=== PATIENT | female | born 1965 | race Caucasian/White ===

== ENCOUNTER 2017-08-04 17:55 | Emergency (ER) | payer OTHER ==
[~2017-08-04] VITALS: Ht 157.5 cm; Wt 86.8 kg
[2017-08-04 18:01] VITALS: BP 152/72; PULSE 68; RESP 18; TEMP 98.1; O2SAT 100
[2017-08-04] MEDS ORDERED: BIRTH CONTROL (18:29)
[2017-08-04 19:01] LABS: AUTOMATED NEUTROPHIL # 5.7 TH/MM3 (1.8-7.7); BASOPHIL # 0.1 TH/MM3 (0-0.2); BASOPHIL % 0.7 % (0.0-2.0); EOSINOPHIL # 0.2 TH/MM3 (0-0.4); EOSINOPHIL % 2.4 % (0.0-4.0); HEMATOCRIT 31.7 % (35.0-46.0); HEMOGLOBIN 10.1 GM/DL (11.6-15.3); LYMPH % 20.4 % (9.0-44.0); LYMPHOCYTE # 1.7 TH/MM3 (1.0-4.8); MEAN CELL VOLUME 84.3 FL (80.0-100.0); MEAN PLATELET VOLUME 8.2 FL (7.0-11.0); MONO % 8.3 % (0.0-8.0); MONOCYTE # 0.7 TH/MM3 (0-0.9); NEUT % 68.2 % (16.0-70.0); PLATELET COUNT 196 TH/MM3 (150-450); RED BLOOD COUNT 3.76 MIL/MM3 (4.00-5.30); RED CELL DISTRIBUTION WIDTH 13.9 % (11.6-17.2); WHITE BLOOD COUNT 8.4 TH/MM3 (4.0-11.0)
--- NOTE | 2017-08-04 19:19 | PD ---
HPI Chief Complaint: Pain: Acute or Chronic Time Seen by Provider: 18:21 Travel History International Travel<30 days: No Contact w/Intl Traveler<30days: No Traveled to known affect area: No History of Present Illness HPI This patient complains of right leg swelling for 3 days. She has got some redness and warmth and swelling and discomfort there. She had an outpatient ultrasound of the leg one hour prior which revealed a right leg DVT. She has no history of DVT. She started on control pills a few days ago because of chronic heavy vaginal bleeding. She follows with an [facility]EMENT [facility] but is just getting to undergo evaluation of this chronic heavy bleeding. She's not bleeding right now. She has an outpatient ultrasound scheduled for next Wednesday. Symptoms severity is mild to moderate. No alleviating factors. No exacerbating factors. PFSH Past Medical History Medical History: Denies Significant Hx Tetanus Vaccination: > 5 Years Influenza Vaccination: No ?: Not Past Surgical History Other Surgery: Yes (JAW SX) Social History Alcohol Use: Yes (RARE) Tobacco Use: No Substance Use: No Allergies-Medications (Allergen,Severity, Reaction): Coded Allergies: No Known Allergies (Verified Allergy, Unknown, 08/04/17) Reported Meds & Prescriptions Reported Meds & Active Scripts Active Xarelto (Rivaroxaban) 15 Mg Tab 15 Mg PO Q12HR 21 Days Reported [ Control] Review of Systems General / Constitutional: No: Fever Eyes: No: Visual changes HENT: No: Headaches Cardiovascular: No: Chest Pain or Discomfort Respiratory: No: Shortness of Breath Gastrointestinal: No: Abdominal Pain Genitourinary: Positive: Vaginal Bleeding, No: Dysuria Musculoskeletal: Positive: Edema, Pain Skin: No Rash Neurologic: No: Weakness Psychiatric: No: Depression Endocrine: No: Polydipsia Hematologic/Lymphatic: No: Easy Bruising Physical Exam Narrative GENERAL: Well-nourished, well-developed patient in no apparent distress. SKIN: Focused skin assessment reveals no rash and nodules. Skin is Warm and dry. HEAD: Atraumatic. Normocephalic. EYES: Pupils equal and round. No scleral icterus. No injection or drainage. ENT: No nasal bleeding or discharge. Mucous membranes pink and moist. NECK: Trachea midline. No JVD. CARDIOVASCULAR: Regular rate and rhythm. No murmur appreciated. RESPIRATORY: No accessory muscle use. Clear to auscultation. Breath sounds equal bilaterally. GASTROINTESTINAL: Abdomen soft, non-tender, nondistended. Hepatic and splenic margins not palpable. MUSCULOSKELETAL: No obvious deformities. No clubbing. No cyanosis. There is some warmth and swelling and redness of the right lower extremity. Primarily between knee and ankle NEUROLOGICAL: Awake and alert. No obvious cranial nerve deficits. Motor grossly within normal limits. Normal speech. PSYCHIATRIC: Appropriate mood and affect; insight and judgment normal. Data Data Last Documented VS Vital Signs Date Time Temp Pulse Resp B/P (MAP) Pulse Ox O2 Delivery O2 Flow Rate FiO2 08/04/17 18:01 98.1 68 18 152/72 (98) 100 Orders Orders Iv Access Insert/Monitor (08/04/17 18:27) Complete Blood Count With Diff (08/04/17 18:27) Prothrombin Time / Inr (Pt) (08/04/17 18:27) Act Partial Throm Time (Ptt) (08/04/17 18:27) Labs Laboratory Tests Test 08/04/17 18:50 White Blood Count 8.4 TH/MM3 Red Blood Count 3.76 MIL/MM3 Hemoglobin 10.1 GM/DL Hematocrit 31.7 % Mean Corpuscular Volume 84.3 FL Mean Corpuscular Hemoglobin 27.0 PG Mean Corpuscular Hemoglobin Concent 32.0 % Red Cell Distribution Width 13.9 % Platelet Count 196 TH/MM3 Mean Platelet Volume 8.2 FL Neutrophils (%) (Auto) 68.2 % Lymphocytes (%) (Auto) 20.4 % Monocytes (%) (Auto) 8.3 % Eosinophils (%) (Auto) 2.4 % Basophils (%) (Auto) 0.7 % Neutrophils # (Auto) 5.7 TH/MM3 Lymphocytes # (Auto) 1.7 TH/MM3 Monocytes # (Auto) 0.7 TH/MM3 Eosinophils # (Auto) 0.2 TH/MM3 Basophils # (Auto) 0.1 TH/MM3 CBC Comment DIFF FINAL Differential Comment Prothrombin Time 10.0 SEC Prothromb Time International Ratio 1.0 RATIO Activated Partial Thromboplast Time 28.4 SEC [facility] Medical Decision Making Medical Screen Exam Complete: Yes Emergency Medical Condition: Yes Medical Record Reviewed: Yes Differential Diagnosis DVT, phlebitis, cellulitis Narrative Course I have reviewed the patient's electronic medical record. I reviewed her outpatient ultrasound from earlier today which does show a right lower extremity DVT IV placed Coagulation studies are normal CBC reveals anemia with hemoglobin 10.1. She has history of anemia but doesn't know the number Patient has a tricky situation given her acute DVT but also with chronic heavy vaginal bleeding. We reviewed the risks of a blood thinner which could likely make her vaginal bleeding worse. I placed a call to her [employer] to discuss risks and benefits. She believes that she can manage the vaginal bleeding and the patient should get the blood thinner. Patient is agreeable to the risks and understands she is more likely have bleeding. She is also aware there is no acute antidote I wrote her 3 weeks of Xarelto and recommend primary care follow-up. [facility] will follow her for DVT until the patient can get a primary at least. Diagnosis Primary Impression: Right leg DVT Qualified Codes: I82.4Y1 - Acute embolism and thrombosis of unspecified deep veins of right proximal lower extremity Additional Impression: Vaginal bleeding Additional Instructions: The patient was advised to follow up with their physician and return if they worsen. Med/Other Pt SpecificInfo: Other Scripts Rivaroxaban (Xarelto) 15 Mg Tab 15 MG PO Q12HR for Blood Clot Prevention for 21 Days, TAB 0 Refills Prov: Darryl Dove MD 08/04/17 Disposition: 01 DISCHARGE HOME Condition: Stable Darryl Dove MD Aug 04, 2017 19:19
[2017-08-04] MEDS ORDERED: XARE15TA PO (19:44)
[2017-08-04 20:00] VITALS: BP 134/72; PULSE 64; RESP 18; O2SAT 98
== END 2017-08-04 20:31 | disposition home or self-care (01) ==
LOC: PHED 17:55
DX: I82.4Y1 Acute embolism and thrombosis of unspecified deep veins of right proximal lower extremity (principal); N93.9 Abnormal uterine and vaginal bleeding, unspecified
CPT/HCPCS: 85025; 85610; 85730; 99283

== ENCOUNTER 2017-11-26 10:49 | Observation (INO) | payer BC, OTHER ==
[~2017-11-26] VITALS: Ht 157.5 cm; Wt 87.4 kg
[2017-11-26] VITALS (10 sets, daily range): BP systolic 102–140; BP diastolic 62–87; PULSE 74–86; RESP 15–18; TEMP 97.4–99.1; O2SAT 97–100
[~2017-11-26 10:49] MED LIST: BIRTH CONTROL; XARE15TA PO
[2017-11-26] MEDS ORDERED: IRONTAB5 PO (11:08)
[2017-11-26] MEDS ORDERED: XARE20TA PO (11:08)
[2017-11-26] MEDS ORDERED: SODIUM CHLORIDE 0.9% FLUSH 10 ML FLUSH IV FLUSH PRN ×2 (11:15→13:15)
[2017-11-26 11:28] LABS: AUTOMATED NEUTROPHIL # 8.4 TH/MM3 (1.8-7.7); BASOPHIL # 0.1 TH/MM3 (0-0.2); BASOPHIL % 0.5 % (0.0-2.0); EOSINOPHIL % 0.3 % (0.0-4.0); HEMATOCRIT 25.4 % (35.0-46.0); HEMOGLOBIN 8.6 GM/DL (11.6-15.3); LYMPH % 12.8 % (9.0-44.0); LYMPHOCYTE # 1.3 TH/MM3 (1.0-4.8); MEAN CELL VOLUME 81.1 FL (80.0-100.0); MEAN CORPUSCULAR HEMOGLOBIN 27.6 PG (27.0-34.0); MEAN PLATELET VOLUME 8.1 FL (7.0-11.0); MONO % 6.1 % (0.0-8.0); MONOCYTE # 0.6 TH/MM3 (0-0.9); NEUT % 80.3 % (16.0-70.0); PLATELET COUNT 223 TH/MM3 (150-450); RED BLOOD COUNT 3.13 MIL/MM3 (4.00-5.30); RED CELL DISTRIBUTION WIDTH 18.9 % (11.6-17.2); WHITE BLOOD COUNT 10.4 TH/MM3 (4.0-11.0)
[2017-11-26 11:37] LABS: CHLORIDE 103 MEQ/L (98-107); SODIUM (NA) 135 MEQ/L (136-145)
[2017-11-26 11:39] LABS: ALBUMIN 3.5 GM/DL (3.4-5.0); CALCIUM 8.1 MG/DL (8.5-10.1)
[2017-11-26 11:40] LABS: BICARBONATE 25.9 MEQ/L (21.0-32.0); BLOOD UREA NITROGEN 10 MG/DL (7-18); GLUCOSE,RANDOM 100 MG/DL (74-106)
[2017-11-26 11:43] LABS: ALT (GPT) 17 U/L (10-53); AST (GOT) 8 U/L (15-37); CREATININE 0.63 MG/DL (0.50-1.00); GLOMERULAR FILTRATION RATE 100 ML/MIN (>89)
[2017-11-26 11:45] LABS: TOTAL BILIRUBIN ADULT 0.3 MG/DL (0.2-1.0); TOTAL PROTEIN 6.9 GM/DL (6.4-8.2)
[2017-11-26 11:46] LABS: ALKALINE PHOSPHATASE 78 U/L (45-117)
--- NOTE | 2017-11-26 11:50 | PD ---
HPI Chief Complaint: Superintendent Pier Problem/Complaint Time Seen by Provider: 10:57 Travel History International Travel<30 days: No Contact w/Intl Traveler<30days: No Traveled to known affect area: No History of Present Illness HPI Patient is a 52-year-old female presents emergency department for evaluation of vaginal bleeding for the past 21 days. Patient states she has been passing large clots about once an hour. She is followed by an SENIOR STAFF ACCOUNTANT in [place], she states that she has a bad reaction to anesthesia and so she has not had a hysterectomy yet. She states she still perimenopausal, she states that she has had an endometrial biopsy some years ago and it did not show any cancer. She states she is feeling very weak and is having to use a walker to walk. She has never had to have a blood transfusion before. She has been on control but shortly after starting control in July she was diagnosed with a blood clot and is now taking Xarelto. She states the symptoms are moderate, for the past 3 weeks, context and associated signs and symptoms as above. PFSH Past Medical History Hx Anticoagulant Therapy: Yes (XARELTO) Diminished Hearing: No Medical other: Yes (DVT RLE) Respiratory: Yes (DISFUNCTIONAL UTERINE BLEEDING) Tetanus Vaccination: > 5 Years Influenza Vaccination: No ?: Not Past Surgical History Other Surgery: Yes (JAW SX) Social History Alcohol Use: Yes (RARE) Tobacco Use: No Substance Use: No Allergies-Medications (Allergen,Severity, Reaction): Coded Allergies: No Known Allergies (Verified Allergy, Unknown, 11/26/17) Reported Meds & Prescriptions Reported Meds & Active Scripts Active Reported [Iron] 325 Mg PO DAILY Xarelto (Rivaroxaban) 20 Mg Tab 20 Mg PO DAILY Review of Systems Except as stated in HPI: all other systems reviewed are Neg Physical Exam Narrative GENERAL: Well-developed well-nourished no obvious distress, appears pale SKIN: Focused skin assessment warm/dry. HEAD: Atraumatic. Normocephalic. EYES: Pupils equal and round. No scleral icterus. No injection or drainage. ENT: No nasal bleeding or discharge. Mucous membranes pink and moist. NECK: Trachea midline. No JVD. CARDIOVASCULAR: Regular rate and rhythm. No murmur appreciated. RESPIRATORY: No accessory muscle use. Clear to auscultation. Breath sounds equal bilaterally. GASTROINTESTINAL: Abdomen soft, non-tender, nondistended. Hepatic and splenic margins not palpable. GENITOURINARY: Exam performed with female nurse trouble shooter present all times, there is fair amount of blood in the vaginal vault, after clearing it there is still some blood coming from the cervical eyes and a slow oozing fashion, no pulsatile bleeding seen, no vaginal trauma, bimanual tenderness negative, no CVA tenderness, no vaginal lesions seen peer MUSCULOSKELETAL: No obvious deformities. No clubbing. No cyanosis. No edema. NEUROLOGICAL: Awake and alert. No obvious cranial nerve deficits. Motor grossly within normal limits. Normal speech. PSYCHIATRIC: Appropriate mood and affect; insight and judgment normal. Data Data Last Documented VS Vital Signs Date Time Temp Pulse Resp B/P (MAP) Pulse Ox O2 Delivery O2 Flow Rate FiO2 11/26/17 12:56 86 16 135/62 (86) 100 Room Air 11/26/17 10:50 97.4 Orders Orders Urinalysis - C+S If Indicated (11/26/17 10:56) Ed Urine Pregnancytest Poc (11/26/17 10:56) Complete Blood Count With Diff (11/26/17 11:10) Comprehensive Metabolic Panel (11/26/17 11:10) Prothrombin Time / Inr (Pt) (11/26/17 11:10) Act Partial Throm Time (Ptt) (11/26/17 11:10) Iv Access Insert/Monitor (11/26/17 11:10) Ecg Monitoring (11/26/17 11:10) Oximetry (11/26/17 11:10) Sodium Chloride 0.9% Flush (Ns Flush) (11/26/17 11:15) Urine Culture (11/26/17 11:50) Type And Screen (11/26/17 12:31) Red Blood Cells (Rbc) (11/26/17 12:31) Sodium Chlor 0.9% 250 Ml Inj (Ns 250 Ml (11/26/17 12:45) Ondansetron Inj (Zofran Inj) (11/26/17 13:15) Admit Order (Ed Use Only) (11/26/17 ) Place In Observation (11/26/17 ) Vital Signs (Adult) Q4H (11/26/17 13:14) Activity Oob With Assistance (11/26/17 13:14) Valve Assembler / Telemetry .CONTINUOUS (11/26/17 13:14) Diet Regular Basic (11/26/17 Lunch) Sodium Chloride 0.9% Flush (Ns Flush) (11/26/17 13:15) Sodium Chloride 0.9% Flush (Ns Flush) (11/26/17 21:00) Ondansetron Inj (Zofran Inj) (11/26/17 14:00) Comprehensive Metabolic Panel (11/27/17 06:00) Complete Blood Count With Diff (11/27/17 06:00) Scd Bilateral/Knee High LESLEY.BID (11/26/17 13:14) Naloxone Inj (Narcan Inj) (11/26/17 13:15) Magnesium Hydroxide Liq (Milk Of Magnesi (11/26/17 13:15) Consult Gynecology (11/26/17 ) Labs Laboratory Tests Test 11/26/17 11:15 11/26/17 11:45 11/26/17 11:50 White Blood Count 10.4 TH/MM3 Red Blood Count 3.13 MIL/MM3 Hemoglobin 8.6 GM/DL Hematocrit 25.4 % Mean Corpuscular Volume 81.1 FL Mean Corpuscular Hemoglobin 27.6 PG Mean Corpuscular Hemoglobin Concent 34.0 % Red Cell Distribution Width 18.9 % Platelet Count 223 TH/MM3 Mean Platelet Volume 8.1 FL Neutrophils (%) (Auto) 80.3 % Lymphocytes (%) (Auto) 12.8 % Monocytes (%) (Auto) 6.1 % Eosinophils (%) (Auto) 0.3 % Basophils (%) (Auto) 0.5 % Neutrophils # (Auto) 8.4 TH/MM3 Lymphocytes # (Auto) 1.3 TH/MM3 Monocytes # (Auto) 0.6 TH/MM3 Eosinophils # (Auto) 0.0 TH/MM3 Basophils # (Auto) 0.1 TH/MM3 CBC Comment DIFF FINAL Differential Comment Blood Urea Nitrogen 10 MG/DL Creatinine 0.63 MG/DL Random Glucose 100 MG/DL Total Protein 6.9 GM/DL Albumin 3.5 GM/DL Calcium Level 8.1 MG/DL Alkaline Phosphatase 78 U/L Aspartate Amino Transf (AST/SGOT) 8 U/L Alanine Aminotransferase (ALT/SGPT) 17 U/L Total Bilirubin 0.3 MG/DL Sodium Level 135 MEQ/L Potassium Level 3.5 MEQ/L Chloride Level 103 MEQ/L Carbon Dioxide Level 25.9 MEQ/L Anion Gap 6 MEQ/L Estimat Glomerular Filtration Rate 100 ML/MIN Prothrombin Time 12.2 SEC Prothromb Time International Ratio 1.2 RATIO Activated Partial Thromboplast Time 34.9 SEC Urine Color RED Urine Turbidity CLOUDY Urine pH 5.0 Urine Specific [place] GREATER/EQUAL 1.030 Urine Protein 100 mg/dL Urine Glucose (UA) NEG mg/dL Urine Ketones TRACE mg/dL Urine Occult Blood LARGE Urine Nitrite NEG Urine Bilirubin NEG Urine Urobilinogen 0.2 MG/DL Urine Leukocyte Esterase NEG Urine RBC INNUM /hpf Urine WBC 25-49 /hpf Urine Squamous Epithelial Cells 0-5 /hpf Urine Bacteria FEW /hpf Microscopic Urinalysis Comment CULTURE INDICATED MDM Medical Decision Making Medical Screen Exam Complete: Yes Emergency Medical Condition: Yes Differential Diagnosis Anemia, dysfunctional uterine bleeding, symptomatic anemia, endometrial cancer, anticoagulated. Narrative Course Patient room to the emergency department, found to be fairly anemic with a hemoglobin drop of about 1 g over the past 2 weeks. She states that her hemoglobin was drawn outside facility and was 9.72 weeks ago, today 8.6. She is symptomatic from this and is anticoagulated and I think would do well to receive a blood transfusion. The patient was discussed with Dr. Cortez and he states that whoever is engineer conductor will come see the patient for routine consult down in [place]. This was discussed with the patient and she is agreeable for admission at this time. Discussed with Dr. Coleman for admission. Diagnosis Primary Impression: Anemia Additional Impression: Dysfunctional uterine bleeding Admitting Information Admitting Physician Requests: Observation Condition: Stable Sanjeev Camp MD Nov 26, 2017 11:50
[2017-11-26 12:07] LABS: INTERNATIONAL NORMALIZED RATIO 1.2 RATIO; PROTHROMBIN TIME - PATIENT 12.2 SEC (9.8-11.6)
[2017-11-26 12:08] LABS: BILIRUBIN, URINE NEG (NEG); BLOOD, URINE LARGE (NEG); GLUCOSE,URINE NEG (NEG); KETONE, URINE TRACE mg/dL (NEG); NITRITE,URINE NEG (NEG); URINE LEUKOCYTE ESTERASE NEG (NEG)
[2017-11-26 12:09] LABS: URINE COLOR RED (YELLW/STRAW)
[2017-11-26 12:11] LABS: RBC, URINE INNUM /hpf (0-3); SQUAMOUS EPITHELIAL CELL URINE 0-5 /hpf (0-5)
[2017-11-26 12:12] LABS: BACTERIA, URINE FEW /hpf
[2017-11-26] MEDS ORDERED: SODIUM CHLOR 0.9% 250 ML INJ 250 ML IV ONE (12:45)
[2017-11-26] MEDS ORDERED: NALOXONE HCL 0.4 MG/ML AMP IV PUSH PRN (13:15)
[2017-11-26] MEDS ORDERED: ONDANSETRON HCL 4 MG/2 ML VIAL IV PUSH ONE (13:15)
[2017-11-26] MEDS ORDERED: MAGNESIUM HYDROXIDE SUSP 30 ML CUP PO PRN ×2 (13:15→15:45)
[2017-11-26] MEDS ORDERED: ONDANSETRON HCL 4 MG/2 ML VIAL IVP PRN (14:00)
--- NOTE | 2017-11-26 14:47 | HHI.HP ---
HPI Service [facility] Primary Care Physician Jerry Mitchell, DO Admission Diagnosis Anemia, DUB on anticoagulant. Diagnoses: (1) Dysfunctional uterine bleeding Diagnosis: Principal (2) Menorrhagia Diagnosis: Principal Chief Complaint: Fatigue, weakness with dysfunctional uterine bleeding Travel History International Travel<30 Days: No Contact w/Intl Traveler <30 Da: No Traveled to Known Affected Are: No History of Present Illness 52-year-old female with known history of dysfunctional uterine bleeding, right lower extremity DVT who presented to the emergency department because of heavy menstruation and large clots. Patient indicates that she has had history of dysfunctional uterine bleeding ever since she was 14 years old. She states that her periods are usually always 14-20 days long. Patient is being managed by a INTERNET DAT[employer] SPECIALIST physician Dr. Jones, she was started on control pills back in August 05, 2017. Presently 3 days after that she developed a l right lower extremity DVT and was subsequently started on Xarelto. Patient has been having her normal periods that continue to last anywhere from 14-20 days. However this last menstruation has been going on for last 21 days. On November 08 she did go to her prior medical doctor's office because she started developing large clots. At that time her hemoglobin was 9.1. She indicates that her primary medical doctor doubled her iron supplements to twice daily. However she has not improved she has had progressive weakness, where she is having to walk with a walker. She states that she is using approximately 5 tampons every 3 hours because of her bleeding. Because she has not improved she came to the emergency department for evaluation. Patient had workup done emergency department found to have a hemoglobin 8.6 and because of that it was recommended that the patient be observed in the hospital for transfusion and management. Review of Systems Genitourinary: COMPLAINS OF: Abnormal vaginal bleeding, Dysmenorrhea Except as stated in HPI: all other systems reviewed are Neg Past Family Social History Past Medical History Right lower extremity DVT Dysfunctional uterine bleeding Past Surgical History Reconstructive surgery of her jaw 1989 Reported Medications Reported Meds & Active Scripts Active Reported [Iron] 325 Mg PO DAILY Xarelto (Rivaroxaban) 20 Mg Tab 20 Mg PO DAILY Allergies: Coded Allergies: No Known Allergies (Verified Allergy, Unknown, 11/26/17) Family History Family history is unknown she is adopted Social History Patient denies any tobacco, alcohol or illicit drug Physical Exam Vital Signs Vital Signs Date Time Temp Pulse Resp B/P (MAP) Pulse Ox O2 Delivery O2 Flow Rate FiO2 11/26/17 14:20 11/26/17 12:56 86 16 135/62 (86) 100 Room Air 11/26/17 11:20 100 Room Air 11/26/17 10:50 97.4 83 18 140/65 (90) 100 Physical Exam GENERAL: Well-developed, well-nourished, in no acute distress. alert and orientated HEENT: Head is normocephalic without any lesions or masses noted. Facial features are symmetric. Eyes: Pupils equal round reactive to light. Extraocular muscles are intact. Conjunctivae were clear. Oropharyngeal: Pharynx without any erythema edema. Tongue is midline without deviation. Buccal mucosa is moist without any masses or lesions NECK: Supple without any masses. Trachea midline no deviation. No JVD, no bruits are appreciated CARDIAC: Regular rhythm, regular rate. S1/S2 are heard. No murmurs gallops or rubs. LUNGS: Clear to auscultation bilaterally. No wheeze, rhonchi or rales. No use of accessory muscles on inspiration or expiration. ABDOMEN: Soft, nontender. Nondistended. Bowel sounds heard in all 4 quadrants. No organomegaly or masses. Negative rebound, negative guarding EXTREMITIES: No edema, pulses are equal bilaterally. No cyanosis or clubbing NEUROLOGY: Mood and affect appear appropriate. Cranial nerves II through XII grossly intact. Muscle strength 5/5 in upper and lower extremities bilaterally. Deep tendon reflexes are 2+ in upper and lower extremities bilaterally. Laboratory Laboratory Tests Test 11/26/17 11:15 11/26/17 11:45 11/26/17 11:50 White Blood Count 10.4 Red Blood Count 3.13 Hemoglobin 8.6 Hematocrit 25.4 Mean Corpuscular Volume 81.1 Mean Corpuscular Hemoglobin 27.6 Mean Corpuscular Hemoglobin Concent 34.0 Red Cell Distribution Width 18.9 Platelet Count 223 Mean Platelet Volume 8.1 Neutrophils (%) (Auto) 80.3 Lymphocytes (%) (Auto) 12.8 Monocytes (%) (Auto) 6.1 Eosinophils (%) (Auto) 0.3 Basophils (%) (Auto) 0.5 Neutrophils # (Auto) 8.4 Lymphocytes # (Auto) 1.3 Monocytes # (Auto) 0.6 Eosinophils # (Auto) 0.0 Basophils # (Auto) 0.1 CBC Comment DIFF FINAL Differential Comment Blood Urea Nitrogen 10 Creatinine 0.63 Random Glucose 100 Total Protein 6.9 Albumin 3.5 Calcium Level 8.1 Alkaline Phosphatase 78 Aspartate Amino Transf (AST/SGOT) 8 Alanine Aminotransferase (ALT/SGPT) 17 Total Bilirubin 0.3 Sodium Level 135 Potassium Level 3.5 Chloride Level 103 Carbon Dioxide Level 25.9 Anion Gap 6 Estimat Glomerular Filtration Rate 100 Prothrombin Time 12.2 Prothromb Time International Ratio 1.2 Activated Partial Thromboplast Time 34.9 Urine Color RED Urine Turbidity CLOUDY Urine pH 5.0 Urine Specific [place] GREATER/EQUAL 1.030 Urine Protein 100 Urine Glucose (UA) NEG Urine Ketones TRACE Urine Occult Blood LARGE Urine Nitrite NEG Urine Bilirubin NEG Urine Urobilinogen 0.2 Urine Leukocyte Esterase NEG Urine RBC INNUM Urine WBC 25-49 Urine Squamous Epithelial Cells 0-5 Urine Bacteria FEW Microscopic Urinalysis Comment CULTURE INDICATED Date/Time Source Procedure Growth Status 11/26/17 11:50 Urine Clean Catch Urine Culture Pending Received Result Diagram: 11/26/17 1115 11/26/17 1115 Caprini VTE Risk Assessment Caprini VTE Risk Assessment: Mod/High Risk (score >= 2) Caprini Risk Assessment Model Point Value = 1 Point Value = 2 Point Value = 3 Point Value = 5 Age 41-60 Minor surgery BMI > 25 kg/m2 Swollen legs Varicose veins or History of unexplained or recurrent spontaneous Oral contraceptives or hormone replacement Sepsis (< 1 month) Serious lung disease, including pneumonia (< 1 month) Abnormal pulmonary function Acute myocardial infarction Congestive heart failure (< 1 month) History of inflammatory bowel disease Medical patient at bed rest Age 61-74 Arthroscopic surgery Major open surgery (> 45 min) Laparoscopic surgery (> 45 min) Malignancy Confined to bed (> 72 hours) Immobilizing plaster cast Central venous access Age >= 75 History of VTE Family history of VTE Factor V Leiden Prothrombin [id number] Lupus anticoagulant Anticardiolipin antibodies Elevated serum homocysteine Heparin-induced thrombocytopenia Other congenital or acquired thrombophilia Stroke (< 1 month) Elective arthroplasty Hip, pelvis, or leg fracture Acute spinal cord injury (< 1 month) Prophylaxis Regimen Total Risk Factor Score Risk Level Prophylaxis Regimen 0-1 Low Early ambulation 2 Moderate Order ONE of the following: *Sequential Compression Device (SCD) *Heparin 5000 units SQ BID 3-4 Higher Order ONE of the following medications: *Heparin 5000 units SQ TID *Enoxaparin/Lovenox 40 mg SQ daily (WT < 150 kg, CrCl > 30 mL/min) *Enoxaparin/Lovenox 30 mg SQ daily (WT < 150 kg, CrCl > 10-29 mL/min) *Enoxaparin/Lovenox 30 mg SQ BID (WT < 150 kg, CrCl > 30 mL/min) AND/OR *Sequential Compression Device (SCD) 5 or more Highest Order ONE of the following medications: *Heparin 5000 units SQ TID (Preferred with Epidurals) *Enoxaparin/Lovenox 40 mg SQ daily (WT < 150 kg, CrCl > 30 mL/min) *Enoxaparin/Lovenox 30 mg SQ daily (WT < 150 kg, CrCl > 10-29 mL/min) *Enoxaparin/Lovenox 30 mg SQ BID (WT < 150 kg, CrCl > 30 mL/min) AND *Sequential Compression Device (SCD) Assessment and Plan Assessment and Plan Dysfunctional uterine bleeding with menorrhagia, complicated by Xarelto use This appears to be chronic condition of the patient is followed by INTERNET DAT[employer]ASE SPECIALIST in outpatient setting Patient indicates that she has had progressive weakness, fatigue, shortness of breath Will only transfuse 1 unit of blood at this time, Monitor hemoglobin and hematocrit to keep hemoglobin above 8.0 INTERNET DATABASE SPECIALIST consulted for further recommendations Right lower extremity DVT Continue Xarelto DVT prevention Patient is on Xarelto Darryl Abreu Nov 26, 2017 14:47
[2017-11-26] MEDS ORDERED: CALCIUM CARBONATE 500 MG CHEWABLE TAB CHEW PRN (15:45)
[2017-11-26] MEDS ORDERED: DOCUSATE SODIUM 100 MG CAP PO PRN (15:45)
[2017-11-26] MEDS ORDERED: TEMAZEPAM 15 MG CAP PO PRN (15:45)
[2017-11-26] MEDS: ACETAMINOPHEN 325 MG TAB PO PRN ×3 (16:15→22:11)
[2017-11-26] MEDS: SODIUM CHLORIDE 0.9% FLUSH 10 ML FLUSH IV FLUSH SCH (20:42)
[2017-11-27 00:17] VITALS: BP 123/70; PULSE 70; RESP 16; TEMP 98.3; O2SAT 97
[2017-11-27 07:48] LABS: AUTOMATED NEUTROPHIL # 8.2 TH/MM3 (1.8-7.7); BASOPHIL % 0.4 % (0.0-2.0); EOSINOPHIL % 0.4 % (0.0-4.0); HEMATOCRIT 32.3 % (35.0-46.0); HEMOGLOBIN 10.2 GM/DL (11.6-15.3); LYMPH % 13.5 % (9.0-44.0); LYMPHOCYTE # 1.4 TH/MM3 (1.0-4.8); MEAN CELL VOLUME 81.5 FL (80.0-100.0); MEAN CORPUSCULAR HEMOGLOBIN 25.7 PG (27.0-34.0); MEAN CORPUSCULAR HGB CONC 31.5 % (32.0-36.0); MEAN PLATELET VOLUME 8.4 FL (7.0-11.0); MONO % 8.6 % (0.0-8.0); MONOCYTE # 0.9 TH/MM3 (0-0.9); NEUT % 77.1 % (16.0-70.0); PLATELET COUNT 220 TH/MM3 (150-450); RED BLOOD COUNT 3.97 MIL/MM3 (4.00-5.30); RED CELL DISTRIBUTION WIDTH 17.7 % (11.6-17.2); WHITE BLOOD COUNT 10.5 TH/MM3 (4.0-11.0)
[2017-11-27 07:59] LABS: CHLORIDE 106 MEQ/L (98-107); SODIUM (NA) 141 MEQ/L (136-145)
[2017-11-27 08:00] VITALS: BP 115/66; PULSE 73; RESP 15; TEMP 97.2; O2SAT 98
[2017-11-27 08:06] LABS: ALBUMIN 3.1 GM/DL (3.4-5.0)
[2017-11-27 08:07] LABS: BICARBONATE 27.5 MEQ/L (21.0-32.0); BLOOD UREA NITROGEN 6 MG/DL (7-18); GLUCOSE,RANDOM 107 MG/DL (74-106)
[2017-11-27 08:10] LABS: ALT (GPT) 14 U/L (10-53); AST (GOT) 6 U/L (15-37); CREATININE 0.65 MG/DL (0.50-1.00); GLOMERULAR FILTRATION RATE 96 ML/MIN (>89)
[2017-11-27 08:11] LABS: TOTAL BILIRUBIN ADULT 0.6 MG/DL (0.2-1.0); TOTAL PROTEIN 6.6 GM/DL (6.4-8.2)
[2017-11-27 08:13] LABS: ALKALINE PHOSPHATASE 78 U/L (45-117)
[2017-11-27] MEDS: SODIUM CHLORIDE 0.9% FLUSH 10 ML FLUSH IV FLUSH SCH (08:38)
[2017-11-27] MEDS: ACETAMINOPHEN 325 MG TAB PO PRN ×2 (08:38→13:19)
[2017-11-27] MEDS ORDERED: RIVAROXABAN 20 MG TAB PO SCH (09:00)
--- NOTE | 2017-11-27 11:01 | HHI.PR ---
Subjective Remarks Patient seen and examined today for follow-up on dysfunctional uterine bleeding. Patient status post transfusion. Awaiting [facility] [facility] evaluation. Patient still with vaginal bleeding. Objective Vitals Vital Signs Date Time Temp Pulse Resp B/P (MAP) Pulse Ox O2 Delivery O2 Flow Rate FiO2 11/27/17 08:00 97.2 73 15 115/66 (82) 98 11/27/17 04:00 11/27/17 00:17 98.3 70 16 123/70 (87) 97 11/26/17 23:07 97.8 77 16 103/87 97 11/26/17 20:22 98.8 74 18 110/66 100 11/26/17 20:00 98.8 74 18 110/66 (81) 100 11/26/17 17:12 97.8 81 18 102/64 98 11/26/17 16:53 99.1 80 18 117/68 99 11/26/17 16:00 98.7 80 15 120/67 (84) 99 11/26/17 15:00 98.3 82 16 115/68 (84) 100 11/26/17 14:20 11/26/17 12:56 86 16 135/62 (86) 100 Room Air 11/26/17 11:20 100 Room Air I/O 11/26/17 11/26/17 11/26/17 11/27/17 11/27/17 11/27/17 07:00 15:00 23:00 07:00 15:00 23:00 Intake Total 120 ml 430 ml 400 ml Balance 120 ml 430 ml 400 ml Intake Oral 120 ml Packed Cells 400 ml 400 ml Blood Product IV Normal Saline Flush 30 ml # Voids 1 4 # Bowel Movements 0 # Sanitary Pads 1 Pads Result Diagram: 11/27/17 0658 11/27/17 0658 Objective Remarks GENERAL: Well-developed, well-nourished, in no acute distress. alert and orientated HEENT: Head is normocephalic without any lesions or masses noted. Facial features are symmetric. Eyes: Extraocular muscles are intact. Conjunctivae were clear. NECK: Supple without any masses. Trachea midline no deviation. No JVD, CARDIAC: Regular rhythm, regular rate. S1/S2 are heard. No murmurs gallops or rubs. LUNGS: Clear to auscultation bilaterally. No wheeze, rhonchi or rales. No use of accessory muscles on inspiration or expiration. ABDOMEN: Soft, nontender. Nondistended. Bowel sounds heard in all 4 quadrants. No organomegaly or masses. Negative rebound, negative guarding EXTREMITIES: No edema, pulses are equal bilaterally. No cyanosis or clubbing NEUROLOGY: Mood and affect appear appropriate. Cranial nerves II through XII grossly intact. Moving all extremities, speech is clear Urinary Catheter: No Vascular Central Line Catheter: No A/P Assessment and Plan Dysfunctional uterine bleeding with menorrhagia, complicated by Xarelto use This appears to be chronic condition of the patient is followed by [facility] in outpatient setting Patient indicates that she has had progressive weakness, fatigue, shortness of breath Patient was transfused 2 units of packed red blood cells per ER physician Monitor hemoglobin and hematocrit to keep hemoglobin above 8.0 [employer] consulted and awaiting recommendations Discussed all treatment options with the patient and transferring to be evaluated by [facility] [facility], follow-up with outpatient [facility] [facility] Patient indicates that she does not want to transferred to another hospital to get evaluated. Patient indicates that she will follow-up with her own [facility] physician, possibly obtain a second opinion from another physician. Right lower extremity DVT Continue Xarelto DVT prevention Patient is on Xarelto Discharge Planning Discharge home in stable condition Activity: Ad katelynn. Diet: Regular diet Medication per medication reconciliation Follow-up with primary medical doctor in 1 week Darryl Abreu Nov 27, 2017 11:01
[2017-11-27 14:00] VITALS: BP 98/58; PULSE 72; RESP 16; TEMP 98.7; O2SAT 98
[2017-11-27 14:50] VITALS: BP 109/54
--- NOTE | 2017-11-27 16:36 | HHI.DCPOC ---
Discharge Care Plan Diagnosis: (1) Dysfunctional uterine bleeding (2) Menorrhagia Goals to Promote Your Health * To prevent worsening of your condition and complications * To maintain your health at the optimal level Directions to Meet Your Goals Take your medications as prescribed Follow your dietary instruction Follow activity as directed Keep your appointments as scheduled Take your immunizations and boosters as scheduled If your symptoms worsen call your PCP, if no PCP go to Urgent Care Center or Emergency Room Smoking is Dangerous to Your Health. Avoid second hand smoke Call the 24-hour hour crisis hotline for domestic abuse at Darryl Abreu Nov 27, 2017 16:36
== END 2017-11-27 17:45 | disposition home or self-care (01) ==
LOC: PHED 10:49 → PHEDA 13:18 → PH3B 14:21
PROVIDERS: ADMIT Hospitalist; ATTEND Hospitalist
DX: N93.8 Other specified abnormal uterine and vaginal bleeding (principal); N92.0 Excessive and frequent menstruation with regular cycle; D64.9 Anemia, unspecified; I82.401 Acute embolism and thrombosis of unspecified deep veins of right lower extremity; Z79.01 Long term (current) use of anticoagulants
CPT/HCPCS: 36430; 80053; 81001; 84703; 85025; 85610; 85730; 86850; 86900; 86901; 86920; 87086; 96361; 96374; 96376; 99285; G0378; J2405; J7050; P9016